=== PATIENT | male | born 1970 | race Caucasian/White ===

== ENCOUNTER 2020-02-03 16:30 | Outpatient (CLI) | payer OTHER ==
[2020-02-03] MEDS ORDERED: GADOTERATE 7.5 MMOL/15 ML VIAL ONE (17:40)
== END 2020-02-03 23:59 | disposition home or self-care (01) ==
LOC: RAD 16:30
PROVIDERS: ATTEND Orthopaedic Surgery
DX: M19.012 Primary osteoarthritis, left shoulder (principal); R07.9 Chest pain, unspecified
CPT/HCPCS: 71552; A9575